=== PATIENT | male | born 1955 | race Caucasian/White ===

== ENCOUNTER 2017-10-10 16:34 | Emergency (ER) | payer OTHER ==
--- NOTE | 2017-10-10 16:51 | UC ---
Throat Pain/Nasal William HPI - HPI Summary HPI Summary: 62 year old male presents with sinus congestion and raspy throat. 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 surgery for acid reflux,2004, [facility] [place],2013, [facility]. carpal tunnel surgery to B/L hands- 2008, [facility] [place]. hernia - Family History Known Family History: Positive: Hypertension, Respiratory Disease - Social History Alcohol Use: None Substance Use Type: None Smoking Status (MU): Former Smoker Amount Used/How Often: 2 PPDs Length of Time of Smoking/Using Tobacco: 5 years Have You Smoked in the Last Year: No When Did the Patient Quit Smoking/Using Tobacco: 1970 - Immunization History Most Recent Influenza Vaccination: not in 2014 Review of Systems Constitutional: Negative Skin: Negative Eyes: Negative ENT: Sore Throat, Nasal Discharge, Sinus Congestion, Sinus Pain/Tenderness Respiratory: Negative Cardiovascular: Negative Gastrointestinal: Negative Genitourinary: Negative Motor: Negative Neurovascular: Negative Musculoskeletal: Negative Neurological: Negative Psychological: Negative All Other Systems Reviewed And Are Negative: Yes Physical Exam Triage Information Reviewed: Yes Vital Signs Reviewed: Yes Eye Exam: Normal ENT: Positive: Pharyngeal erythema, Nasal congestion, Nasal drainage, Sinus tenderness Dental Exam: Normal Neck exam: Normal Neck: Positive: 1 Respiratory Exam: Normal Cardiovascular Exam: Normal Abdominal Exam: Normal Musculoskeletal Exam: Normal Neurological Exam: Normal Psychological Exam: Normal Skin Exam: Normal Throat Pain/Nasal Course/Dx - Differential Dx/Diagnosis Provider Diagnoses: sinus congestion. post nasal drip Discharge - Discharge Plan Condition: Stable Disposition: HOME Prescriptions: Amoxicillin PO (*) [Amoxicillin 875 MG (*)] 875 mg PO BID #20 tab Guaifenesin-Codeine [Cheratussin AC] 1 teasp PO Q8HR PRN #120 ml MDD 15 ML PRN Reason: Cough LoraTADine TAB(NF) [Claritin 10 MG TAB(NF)] 10 mg PO DAILY #30 tab Patient Education Materials: Sinusitis (ED) Referrals: Non Staff,Doctor [Medical Doctor] -
[2017-10-10 17:05] VITALS: BP 129/73
== END 2017-10-10 17:32 | disposition home or self-care (01) ==
LOC: UCCORT 16:34
DX: R09.81 Nasal congestion (principal); R09.82 Postnasal drip; Z88.2 Allergy status to sulfonamides; Z87.891 Personal history of nicotine dependence
CPT/HCPCS: 99212; G0463

== ENCOUNTER 2018-04-22 09:22 | Emergency (ER) | payer OTHER ==
[2018-04-22 09:39] VITALS: BP 136/77
--- NOTE | 2018-04-22 10:51 | UC ---
Respiratory Complaint HPI - HPI Summary HPI Summary: 63 yo gentleman c/o several days cough, congestion. Sx worsening, now sinuses clogged. + productive cough yellow-mikki. Now + sinus congestion with bloody mucus when blows nose hard. Minimal fever. No rash. No sob. + ears congested. No rash. No recent abx, most recent approx last year for similar sx. - History of Current Complaint Chief Complaint: UCRespiratory Stated Complaint: UPPER RESPIRATORY Time Seen by Provider: 04/22/18 09:53 Hx Obtained From: Patient Onset/Duration: Lasting Days Pain Intensity: 6 - Allergies/Home Medications Allergies/Adverse Reactions: Allergies Allergy/AdvReac Type Severity Reaction Status Date / Time Sulfa (Sulfonamide Allergy Mild itch Verified 04/22/18 09:32 Antibiotics) Home Medications: Home Medications Ibuprofen TAB* [Advil TAB*] 200 mg PO Q6H PRN 04/22/18 [History Confirmed ] PMH/Surg Hx/FS Hx/Imm Hx Previously Healthy: Yes - Surgical History Surgical History: Yes Surgery Procedure, Year, and Place: back surgery-for bulging disk, 1995, [place] ;. 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 surgery for acid reflux,2004, [facility] [place] ;. right knee surgery,2013, [facility] ;. carpal tunnel surgery to B/L hands- 2008, [facility] ;. hernia ;. LEFT KNEE INJURY/SURGERY - Family History Known Family History: Positive: Hypertension, Respiratory Disease - Social History Alcohol Use: None Substance Use Type: None Smoking Status (MU): Former Smoker Amount Used/How Often: 2 PPDs Length of Time of Smoking/Using Tobacco: 5 years Have You Smoked in the Last Year: No When Did the Patient Quit Smoking/Using Tobacco: 1970 - Immunization History Most Recent Influenza Vaccination: not in 2014 Review of Systems Constitutional: Other - see hpi Skin: Negative Eyes: Negative ENT: Sore Throat, Nasal Discharge, Sinus Congestion, Sinus Pain/Tenderness, Other - see hpi Respiratory: Cough - see hpi Cardiovascular: Negative Gastrointestinal: Negative Genitourinary: Negative Motor: Negative Neurovascular: Negative Musculoskeletal: Negative Neurological: Negative Psychological: Negative Is Patient Immunocompromised?: No All Other Systems Reviewed And Are Negative: Yes Physical Exam Triage Information Reviewed: Yes Appearance: Well-Nourished - sitting up. converses in full sentances. Vital Signs: Initial Vital Signs Temp 98.7 F 04/22/18 09:34 Pulse 60 04/22/18 09:34 Resp 16 04/22/18 09:34 BP 136/77 04/22/18 09:34 Pulse Ox 99 04/22/18 09:34 Eye Exam: Normal ENT: Positive: Pharyngeal erythema - no sores / exudates, c/w cough and post nasal drip, Nasal congestion, Nasal drainage, Other - TM not visible initially d /t cerumen impaction. Post flush by RN, TM's intact some scar. + dull wagner retracted. Neck exam: Normal Neck: Positive: Supple, Nontender Respiratory Exam: Other - + rhonchorus cough. BS equal, clear Respiratory: Positive: Chest non-tender, No respiratory distress, No accessory muscle use Cardiovascular Exam: Normal Cardiovascular: Positive: RRR, No Murmur, Pulses Normal, Brisk Capillary Refill Abdominal Exam: Normal Abdomen Description: Positive: Nontender Musculoskeletal Exam: Normal Musculoskeletal: Positive: Strength Intact Neurological Exam: Normal - grossly nonfocal Psychological Exam: Normal - conversing easily and appropriately Skin Exam: Normal - non-diaphoretic. no visible or reported rash UC Diagnostic Evaluation - Laboratory O2 Sat by Pulse Oximetry: 99 Respiratory Course/Dx - Course Course Of Treatment: no new problems in CCC. Cerumen impaction - irrigate by RN. Questions as posed answered to the best of my ability. - Differential Dx/Diagnosis Provider Diagnoses: Bronchitis / sinusitis. Cerumen impaction Discharge - Sign-Out/Discharge Documenting (check all that apply): Discharge/Admit/Transfer - Discharge Plan Condition: Stable Disposition: HOME Prescriptions: Albuterol HFA INHALER* [Ventolin HFA Inhaler*] 1 - 2 puff INH Q4H PRN #1 mdi PRN Reason: Wheezing Azithromyxin PEPITO (NF) [Z-Pepito (Zithromax) 250 mg tabs #6] 2 tab PO .TODAY, THEN 1 DAILY #6 tab Patient Education Materials: Cerumen Impaction (ED), Acute Bronchitis (ED) Referrals: No Primary Care Phys,NOPCP [Primary Care Provider] - [facility] [place] PHYSICIAN REFERRAL [Outside] Additional Instructions: Follow up with a primary care provider as soon as you are able. Please seek medical attention for worse or new problems in the meantime. - Billing Disposition and Condition Condition: STABLE Disposition: HOME
== END 2018-04-22 10:58 | disposition home or self-care (01) ==
LOC: UCCORT 09:22
DX: J40 Bronchitis, not specified as acute or chronic (principal); J32.9 Chronic sinusitis, unspecified; H61.20 Impacted cerumen, unspecified ear; Z87.891 Personal history of nicotine dependence; Z88.2 Allergy status to sulfonamides
CPT/HCPCS: 99213; G0463

== ENCOUNTER 2019-04-26 07:55 | Emergency (ER) | payer OTHER ==
[2019-04-26 08:08] VITALS: BP 133/76
--- NOTE | 2019-04-26 08:22 | UC ---
Respiratory Complaint HPI - HPI Summary HPI Summary: Per oil driller: "Sinus and chest congestion, sore throat at the beginning of the week which has since gone away, low grade fever, productive cough. " -pain over cheeks and forehead x 2 days. no documented fever. ? + asthma - mild. has alb to use prn. used it w/ relief in chest 2 days ago. none since then. -non-smoker. - History of Current Complaint Chief Complaint: UCGeneralIllness Stated Complaint: SINUS CHEST CONGESTION Time Seen by Provider: 04/26/19 08:12 Pain Intensity: 2 - Allergies/Home Medications Allergies/Adverse Reactions: Allergies Allergy/AdvReac Type Severity Reaction Status Date / Time Sulfa (Sulfonamide Allergy Mild itch Verified 04/26/19 08:09 Antibiotics) Home Medications: Home Medications Doxylamine/Phenylep/Dm/Aspirin [[place] Day-Night Tab Eff] 1 tab PO ONCE [History Confirmed 04/26/19] PMH/Surg Hx/FS Hx/Imm Hx Previously Healthy: Yes - Surgical History Surgical History: Yes Surgery Procedure, Year, and Place: back surgery-for bulging disk, 1995, [place]. 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 surgery for acid reflux, 2004, [facility] [place]. bilateral carpal tunnel. R knee surgery. right knee surgery,2013, [facility] ;. carpal tunnel surgery to B/L hands- 2008, [facility] ;. hernia ;. LEFT KNEE INJURY/SURGERY - Family History Known Family History: Positive: Hypertension, Respiratory Disease - Social History Alcohol Use: None Substance Use Type: None Smoking Status (MU): Former Smoker Amount Used/How Often: 2 PPDs Length of Time of Smoking/Using Tobacco: 5 years Have You Smoked in the Last Year: No When Did the Patient Quit Smoking/Using Tobacco: 1970 - Immunization History Most Recent Influenza Vaccination: not in 2014 Review of Systems All Other Systems Reviewed And Are Negative: Yes Constitutional: Positive: Negative Skin: Positive: Negative Eyes: Positive: Negative ENT: Positive: Sore Throat, Nasal Discharge, Sinus Congestion, Sinus Pain/ Tenderness Respiratory: Positive: Cough. Negative: Shortness Of Breath Cardiovascular: Positive: Negative Gastrointestinal: Positive: Negative Genitourinary: Positive: Negative Motor: Positive: Negative Neurovascular: Positive: Negative Musculoskeletal: Positive: Negative Neurological: Positive: Negative Psychological: Positive: Negative Is Patient Immunocompromised?: No Physical Exam Triage Information Reviewed: Yes Appearance: Well-Appearing, No Pain Distress, Well-Nourished Vital Signs: Initial Vital Signs Temp 98 F 04/26/19 08:03 Pulse 63 04/26/19 08:03 Resp 18 04/26/19 08:03 BP 133/76 04/26/19 08:03 Pulse Ox 97 04/26/19 08:03 Vital Signs Reviewed: Yes Eye Exam: Normal Eyes: Positive: Conjunctiva Clear ENT: Positive: Pharynx normal - +PND, no exudate, Nasal congestion, Nasal drainage, TMs normal, Sinus tenderness - mild b/l frontal and maxillary. Negative: TM bulging, TM dull, TM red, Tonsillar swelling, Tonsillar exudate, Hoarse voice Dental Exam: Normal Neck exam: Normal Neck: Positive: Supple, Nontender, No Lymphadenopathy Respiratory Exam: Normal Respiratory: Positive: Lungs clear, No respiratory distress, No accessory muscle use, Decreased breath sounds - mild b/l. no areas of conolidation auscultaed. Negative: Crackles, Rhonchi, Stridor, Wheezing Cardiovascular Exam: Normal Cardiovascular: Positive: RRR Abdominal Exam: Normal Abdomen Description: Positive: Nontender Musculoskeletal Exam: Normal Neurological Exam: Normal Psychological Exam: Normal Skin Exam: Normal Respiratory Course/Dx - Course Course Of Treatment: Viral URI w/ sinus pain of only 2 days w/o fever, does not constitute a bacterial infection. Luns are consitent w/ bronchitis w/ h/o possibel mild asthna. netti pot, flonase and alb. APAP/nsaid for fever/discmofrt. f/u in 1 wk - may need abx if still w/ sinus pain at that time. he understood me well adn is very agreeable w/ plan -PCP Hui Torres - Differential Dx/Diagnosis Differential Diagnosis/HQI/PQRI: Asthma, Bronchitis, Sinusitis Provider Diagnosis: Upper respiratory infection, Bronchitis Discharge - Sign-Out/Discharge Documenting (check all that apply): Patient Departure All imaging exams completed and their final reports reviewed: No Studies - Discharge Plan Condition: Stable Disposition: HOME Patient Education Materials: Upper Respiratory Infection (ED), Acute Bronchitis (ED) Referrals: No Primary Care Phys,NOPCP [Primary Care Provider] - Additional Instructions: There is no evidence for any bacterial infection at this time. We recommend that you use a netti pot/saline lavage with distilled water daily followed by OTC flonase nasal spray. You can use tylenol/ibuprofen for pain/ discomfort. If your symptoms persist/fever develops, you may need to be re-evaluated for a bacterial infection. You should use your albuterol inhaler every 4-6 hrs while you are sick to help your cough. Follow up with your PCP in ~ 5-6 days, sooner if symptoms worsen. - Billing Disposition and Condition Condition: STABLE Disposition: Home
== END 2019-04-26 08:34 | disposition home or self-care (01) ==
LOC: UCCORT 07:55
DX: J06.9 Acute upper respiratory infection, unspecified (principal); J40 Bronchitis, not specified as acute or chronic; Z88.2 Allergy status to sulfonamides; Z87.891 Personal history of nicotine dependence
CPT/HCPCS: 99211; G0463